=== PATIENT | male | born 1940 | race Caucasian/White ===

== ENCOUNTER → 2016-07-08 | Outpatient (REF) | payer MEDICARE ==
[~2016-07-08] MED LIST: /PANT40TA PO; ACET500C PO; ALBU83IN INH; AMLO5TAB OR; ASPI1TAB PO; ASPI81TA7 PO; ASPI81TA85 PO; BENA20TA2 OR; BENA5TAB PO; BUPR100T12 OR; BUPR1TAB17 PO; CODE30SO PO; ECOT325T5 OR; GICOCKTAIL PO; GLIM1TAB PO; IMIQ5CRE TOP; LEVO250T PO; MAGN250T OR; METO12TA PO; METO25TAB PO; OCEA0.654; PANT40TA2 PO; PRAV20TA2 OR; PRAV40TA2 PO; PRED10PA PO; TIOT18INH INH; TRAV0.006 OU; TRAVATAN Z OU; TRUL0.5I SC; VICO5TAB OR; VIT D 2000 OR; ZITHTAB PO; mycostatin PO
== END ==
LOC: M SFHCPLAZ 17:21
PROVIDERS: ATTEND Dermatology
DX: D49.2 Neoplasm of unspecified behavior of bone, soft tissue, and skin (principal); L57.0 Actinic keratosis; L21.9 Seborrheic dermatitis, unspecified

== ENCOUNTER → 2016-07-15 | Outpatient (CLI) | payer MEDICARE ==
[2016-07-15 11:46] LABS: ALBUMIN 3.6 GM/DL (3.2-5.2); ALBUMIN/GLOBULIN RATIO 1.09 (1.00-1.93); BILIRUBIN,TOTAL 0.3 MG/DL (0.2-1.0); CALCIUM LEVEL 8.8 MG/DL (8.8-10.2); CREATININE FOR GFR 1.56 MG/DL (0.70-1.30); GLOMERULAR FILTRATION RATE 46.2 (>42); POTASSIUM SERUM 4.2 MEQ/L (3.5-5.1); TOTAL PROTEIN 6.9 GM/DL (6.4-8.2)
== END ==
LOC: M LAB 10:38
PROVIDERS: ATTEND Ophthalmology
DX: H25.13 Age-related nuclear cataract, bilateral (principal); Z79.899 Other long term (current) drug therapy

== ENCOUNTER → 2016-07-20 | Outpatient (REF) | payer MEDICARE | LOC: M LAB REF 12:06 | PROVIDERS: ATTEND Internal Medicine | DX: R74.8 Abnormal levels of other serum enzymes (principal) ==

== ENCOUNTER → 2016-07-22 | Outpatient (CLI) | payer MEDICARE ==
[~2016-07-22] MED LIST changes: +FERR150C PO; +TRAV04OPD OU
--- NOTE | 2016-07-22 16:18 | REP ---
PET/CT: History: Restaging lung carcinoma. 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 Comparisons: Comparison PET/CTs are reviewed, the most recent of which is from 01/23/2016. TECHNIQUE: 75 minutes following the intravenous injection of a 8.5 mCi dose of F-18 FDG, three-dimensional PET scintigraphy is acquired from the skull base to the proximal thighs. Triplanar noncontrast CT scanning is acquired through the same anatomic range for attenuation correction, and image registration with scan parameters optimized to minimize radiation exposure to the patient. PET scintigraphy and CT datasets were fused and displayed on a workstation with multiplanar and projection display capability. PET/CT Findings: A small right pleural and a small pericardial effusion persist. There is discernible non-hypermetabolic uptake within the right pleural space, maximum SUV value below two. This is unchanged. There are post-treatment changes fairly extensively in the left chest with volume loss and pleural thickening at the upper lung zone. The liver and no hypermetabolic uptake is seen here. No adrenal hypermetabolic uptake is observed. Head and neck soft tissues remain unremarkable. There is an Zpfean-A-Warh catheter via the left side. In the abdomen and pelvis there is normal FDG distribution. There is however a new focal area of hypermetabolic uptake in the rectosigmoid colon which appears rounded and which shows higher activity than the background gastrointestinal mucosal uptake on today's scan. Maximum SUV value here is 7.2. This is a new finding and I cannot exclude a developing malignant nodule in the rectosigmoid colon. Consider sigmoidoscopy. There is no abnormality on the accompanying CT scan at this level. Impression: Stable changes in the chest. No new intrathoracic hypermetabolic uptake. There is a new focus of hypermetabolic uptake in the rectosigmoid colon question new colon lesion. Consider sigmoidoscopy. Signed by Buzz Bartlett MD 07/22/2016 04:25 P
== END ==
LOC: M RAD 09:28
PROVIDERS: ATTEND Internal Medicine Medical Oncology
DX: C34.90 Malignant neoplasm of unspecified part of unspecified bronchus or lung (principal); Z92.3 Personal history of irradiation
CPT/HCPCS: 78815; A9552

== ENCOUNTER → 2016-07-23 | Day surgery (SDC) | payer MEDICARE ==
[~2016-07-23] VITALS: Ht 172.7 cm; Wt 72.6 kg
[~2016-07-23] MED LIST changes: +ACETYLCHOLINE OPHTH SOLN 1% 2ML As Ordered ONE; +ACETYLCHOLINE OPHTH SOLN 1% 2ML XX ONE; +BALANCED SALT IRRIGATION SOL 500ML GLASS BOTTLE (FOR OR EYE COMPOUND) IR ONE; +BALANCED SALT IRRIGATION SOLUTION 500ML BAG (FOR OR EYE MACHINE) As Ordered ONE; +CEFUROXIME 1MG/0.1ML INTRACAMERAL INJ As Ordered ONE; +CEFUROXIME 1MG/0.1ML INTRACAMERAL INJ ICAM ONE; -FERR150C PO; +HEALON DUET (HEALON 10MG/ML 0.55ML & HEALON ENDOCOAT 30MG/ML 0.85ML) As Ordered ONE; +HEALON DUET (HEALON 10MG/ML 0.55ML & HEALON ENDOCOAT 30MG/ML 0.85ML) XX ONE; +LIDOCAINE 0.75%/EPINEPHRINE 0.025% IN BSS 1ML SYR INTRACAMERAL (OR ONLY) As Ordered ONE; +LIDOCAINE 4% INJ 5 ML AMP As Ordered ONE; +LIDOCAINE 4% INJ 5 ML AMP XX ONE; +MIDAZOLAM INJ 2 MG/2 ML VIAL (J2250) As Ordered ONE; +OFLOXACIN 0.3 % (OCUFLOX) OPTH SOL 5ML OS ONE; +PHENYLEPHRINE 2.5% OPHTH SOL 2ML OS ONE; +POVIDONE-IODINE 5% OPHTH PREP SOL 30ML As Ordered ONE; +PROPARACAINE 0.5% OPHTH SOL 15ML OS ONE; +TOBRADEX OPHTH OINT 3.5 GM As Ordered ONE; +TOBRADEX OPHTH OINT 3.5 GM XX ONE; -TRAV04OPD OU; +TROPICAMIDE 1% OPHTH SOLN 2 ML OS ONE; +fentaNYL 100 MCG/2 ML INJECTION (J3010) As Ordered ONE
[2016-07-23] MEDS: D5W/0.2% SODIUM CHLORIDE 1,000 ML IV SCH ×2 (10:10→10:59)
[2016-07-23 12:24] VITALS: BP 128/80
--- NOTE | 2016-07-23 21:19 | RO ---
DATE OF PROCEDURE: 07/23/2016 PREOPERATIVE DIAGNOSIS: Visually significant nuclear sclerotic cataract left eye. POSTOPERATIVE DIAGNOSIS: Visually significant nuclear sclerotic cataract left eye. PROCEDURE: Cataract extraction with use of phacoemulsification and placement of intraocular lens 22.5 diopter, left eye. SURGEON: Stef Ramesh DO SASH INSTALLER: ANESTHESIA: Local with monitored anesthesia care (MAC). COMPLICATIONS: None. POSTOPERATIVE CONDITION: Stable. INDICATION FOR SURGERY: Blurred vision left eye affecting patient's activities of daily living. DESCRIPTION OF PROCEDURE: The patient was seen in the preoperative area and properly identified. The correct operative eye was identified and marked. Attention was turned to that eye. The patient received topical antibiotics in the preoperative area. The patient then received topical dilating drops consisting of tropicamide and phenylephrine. The patient was then transferred to the operating room. The correct side was reidentified. The patient received topical anesthetics and antibiotics on the surface of the eye. The eye was prepped and draped in a sterile fashion. The upper and lower eyelids were isolated with Tegaderm tape, and the lids were held open with an adjustable speculum. Using a sideport blade, a paracentesis incision was made. Intraocular preservative-free lidocaine was then injected into the anterior chamber. Viscoelastic was then injected into the anterior chamber through the paracentesis. Using a 2.65 mm sharp-tipped keratome, the anterior chamber was entered via a temporal clear corneal incision. A continuous curvilinear capsulorrhexis was created with the aid of a 26-gauge cystotome and Utrata forceps. Hydrodissection was performed with balanced salt solution (BSS) on a blunt cannula until the nucleus was freely mobile. The crystalline lens was phacoemulsified and aspirated. Additional cohesive viscoelastic was placed into the capsular bag to deepen it. A left lens was placed into the capsular bag and confirmed by visualizing the continuous curvilinear capsulorrhexis. Additional irrigation and aspiration was used to remove cortical material and remaining viscoelastic. The clear corneal incision was hydrated with BSS on a blunt cannula. The lens was well positioned. A single 10-0 nylon suture was placed in the main incision to close it. The incisions were then tested for leaks and found to be negative. The eye was then palpated for appropriate pressure and adjusted accordingly with BSS. The eyelid speculum was then carefully removed. Tobradex ointment was placed in the eye. An eye patch and shield were then secured over the eye. The patient tolerated the procedure well and was discharged to the recovery unit in a stable condition. GUSTAVO
== END | disposition home or self-care (01) ==
LOC: M SDC 08:35
PROVIDERS: ATTEND Ophthalmology
DX: H25.12 Age-related nuclear cataract, left eye (principal); H40.9 Unspecified glaucoma; I25.10 Atherosclerotic heart disease of native coronary artery without angina pectoris; I25.2 Old myocardial infarction; E11.22 Type 2 diabetes mellitus with diabetic chronic kidney disease; I12.9 Hypertensive chronic kidney disease with stage 1 through stage 4 chronic kidney disease, or unspecified chronic kidney disease; E78.5 Hyperlipidemia, unspecified; K21.9 Gastro-esophageal reflux disease without esophagitis; N18.3 Chronic kidney disease, stage 3 (moderate); Z95.810 Presence of automatic (implantable) cardiac defibrillator; Z95.820 Peripheral vascular angioplasty status with implants and grafts; Z85.118 Personal history of other malignant neoplasm of bronchus and lung; Z87.891 Personal history of nicotine dependence; Z79.899 Other long term (current) drug therapy; Z79.82 Long term (current) use of aspirin; Z88.5 Allergy status to narcotic agent; Z88.6 Allergy status to analgesic agent; Z88.8 Allergy status to other drugs, medicaments and biological substances; Z91.040 Latex allergy status
CPT/HCPCS: 66984; J2250; J3010; V2632

== ENCOUNTER → 2016-08-06 | Day surgery (SDC) | payer MEDICARE ==
[~2016-08-06] VITALS: Ht 172.7 cm; Wt 72.0 kg
[~2016-08-06] MED LIST changes: -BALANCED SALT IRRIGATION SOL 500ML GLASS BOTTLE (FOR OR EYE COMPOUND) IR ONE; +LIDOCAINE 0.75%/EPINEPHRINE 0.025% IN BSS 1ML SYR INTRACAMERAL (OR ONLY) ICAM ONE; +OFLOXACIN 0.3 % (OCUFLOX) OPTH SOL 5ML OD ONE; -OFLOXACIN 0.3 % (OCUFLOX) OPTH SOL 5ML OS ONE; +PHENYLEPHRINE 2.5% OPHTH SOL 2ML OD ONE; -PHENYLEPHRINE 2.5% OPHTH SOL 2ML OS ONE; +PROPARACAINE 0.5% OPHTH SOL 15ML OD ONE; -PROPARACAINE 0.5% OPHTH SOL 15ML OS ONE; +TROPICAMIDE 1% OPHTH SOLN 2 ML OD ONE; -TROPICAMIDE 1% OPHTH SOLN 2 ML OS ONE
[2016-08-06 15:30] VITALS: BP 137/76
--- NOTE | 2016-08-07 10:58 | RO ---
DATE OF PROCEDURE: 08/06/2016 PREOPERATIVE DIAGNOSIS: 1. Visually significant nuclear sclerotic cataract, right eye POSTOPERATIVE DIAGNOSES: 1. Visually significant nuclear sclerotic cataract, right eye 2. Small pupil, right eye 3. Intraoperative floppy iris syndrome, right eye PROCEDURE: Complex cataract extraction with insertion of intraocular lens implant, ZCB00, 24.0 diopter with the use of iris hooks SURGEON: Stef Ramesh DO CONSTRUCTION RECRUITER: ANESTHESIA: Local with monitored anesthesia care (MAC). COMPLICATIONS: None. POSTOPERATIVE CONDITION: Stable. INDICATION FOR SURGERY: Blurred vision right eye affecting patient's activities of daily living. DESCRIPTION OF PROCEDURE: The patient was seen in the preoperative area and properly identified. The correct operative eye was identified and marked. Attention was turned to that eye. The patient received topical antibiotics in the preoperative area. The patient then received topical dilating drops consisting of tropicamide and phenylephrine. The patient was then transferred to the operating room. The correct side was reidentified. The patient received topical anesthetics and antibiotics on the surface of the eye. The eye was prepped and draped in a sterile fashion. The upper and lower eyelids were isolated with Tegaderm tape, and the lids were held open with an adjustable speculum. Using a sideport blade, a paracentesis incision was made. Intraocular preservative-free lidocaine was then injected into the anterior chamber. Viscoelastic was then injected into the anterior chamber through the paracentesis. Using a 2.65 mm sharp-tipped keratome, the anterior chamber was entered via a temporal clear corneal incision. A continuous curvilinear capsulorrhexis was created with the aid of a 26-gauge cystotome and Utrata forceps. Hydrodissection was performed with balanced salt solution (BSS) on a blunt cannula until the nucleus was freely mobile. At this time, the iris was noted to be floppy and protruding to the primary incision. The decision was made to place iris hooks to expand the pupil and keep the iris in the appropriate position. Additional paracentesis incisions were made and the hooks were placed without difficulty. The crystalline lens was phacoemulsified and aspirated. Additional cohesive viscoelastic was placed into the capsular bag to deepen it. A ZCB00, 24.0 diopter lens was placed into the capsular bag and confirmed by visualizing the continuous curvilinear capsulorrhexis. Additional irrigation and aspiration was used to remove cortical material and remaining viscoelastic. The iris hooks were removed from the eye. The clear corneal incision was hydrated with BSS on a blunt cannula. The lens was well positioned. A single 10-0 nylon suture was placed in the incision. The incisions were then tested for leaks and found to be negative. The eye was then palpated for appropriate pressure and adjusted accordingly with BSS. The eyelid speculum was then carefully removed. Tobradex ointment was paced in the eye. An eye patch and shield were then secured over the eye. The patient tolerated the procedure well and was discharged to the recovery unit in a stable condition. GUSTAVO
== END | disposition home or self-care (01) ==
LOC: M SDC 10:58
PROVIDERS: ATTEND Ophthalmology
DX: H25.11 Age-related nuclear cataract, right eye (principal); H57.03 Miosis; H21.81 Floppy iris syndrome; I25.10 Atherosclerotic heart disease of native coronary artery without angina pectoris; Z95.5 Presence of coronary angioplasty implant and graft; I25.2 Old myocardial infarction; E11.22 Type 2 diabetes mellitus with diabetic chronic kidney disease; I12.9 Hypertensive chronic kidney disease with stage 1 through stage 4 chronic kidney disease, or unspecified chronic kidney disease; K21.9 Gastro-esophageal reflux disease without esophagitis; N18.3 Chronic kidney disease, stage 3 (moderate); E78.5 Hyperlipidemia, unspecified; Z95.810 Presence of automatic (implantable) cardiac defibrillator; Z85.118 Personal history of other malignant neoplasm of bronchus and lung; Z85.828 Personal history of other malignant neoplasm of skin; Z87.891 Personal history of nicotine dependence; Z79.899 Other long term (current) drug therapy; Z79.82 Long term (current) use of aspirin; Z88.5 Allergy status to narcotic agent; Z88.8 Allergy status to other drugs, medicaments and biological substances; Z91.040 Latex allergy status; Z92.3 Personal history of irradiation; Z92.21 Personal history of antineoplastic chemotherapy
CPT/HCPCS: 66982; J2250; J3010; V2632

== ENCOUNTER → 2016-08-10 | Outpatient (REF) | payer MEDICARE ==
[~2016-08-10] MED LIST changes: -ACETYLCHOLINE OPHTH SOLN 1% 2ML As Ordered ONE; -ACETYLCHOLINE OPHTH SOLN 1% 2ML XX ONE; -BALANCED SALT IRRIGATION SOLUTION 500ML BAG (FOR OR EYE MACHINE) As Ordered ONE; -CEFUROXIME 1MG/0.1ML INTRACAMERAL INJ As Ordered ONE; -CEFUROXIME 1MG/0.1ML INTRACAMERAL INJ ICAM ONE; -HEALON DUET (HEALON 10MG/ML 0.55ML & HEALON ENDOCOAT 30MG/ML 0.85ML) As Ordered ONE; -HEALON DUET (HEALON 10MG/ML 0.55ML & HEALON ENDOCOAT 30MG/ML 0.85ML) XX ONE; -LIDOCAINE 0.75%/EPINEPHRINE 0.025% IN BSS 1ML SYR INTRACAMERAL (OR ONLY) As Ordered ONE; -LIDOCAINE 0.75%/EPINEPHRINE 0.025% IN BSS 1ML SYR INTRACAMERAL (OR ONLY) ICAM ONE; -LIDOCAINE 4% INJ 5 ML AMP As Ordered ONE; -LIDOCAINE 4% INJ 5 ML AMP XX ONE; -MIDAZOLAM INJ 2 MG/2 ML VIAL (J2250) As Ordered ONE; -OFLOXACIN 0.3 % (OCUFLOX) OPTH SOL 5ML OD ONE; -PHENYLEPHRINE 2.5% OPHTH SOL 2ML OD ONE; -POVIDONE-IODINE 5% OPHTH PREP SOL 30ML As Ordered ONE; -PROPARACAINE 0.5% OPHTH SOL 15ML OD ONE; -TOBRADEX OPHTH OINT 3.5 GM As Ordered ONE; -TOBRADEX OPHTH OINT 3.5 GM XX ONE; -TROPICAMIDE 1% OPHTH SOLN 2 ML OD ONE; -fentaNYL 100 MCG/2 ML INJECTION (J3010) As Ordered ONE
== END ==
LOC: M LAB REF 12:06
PROVIDERS: ATTEND Internal Medicine
DX: R74.8 Abnormal levels of other serum enzymes (principal)

== ENCOUNTER → 2016-09-01 | Outpatient (REF) | payer MEDICARE ==
[~2016-09-01] MED LIST changes: +TRAV04OPD OU
[2016-09-01 15:02] LABS: PERCENT SATURATION 14.3 % (19.7-37.4)
== END ==
LOC: M LAB REF 12:45
PROVIDERS: ATTEND Internal Medicine Nephrology
DX: D50.9 Iron deficiency anemia, unspecified (principal)

== ENCOUNTER → 2016-09-08 | Outpatient (CLI) | payer MEDICARE ==
[~2016-09-08] VITALS: Ht 168.9 cm; Wt 72.6 kg
[~2016-09-08] MED LIST changes: +FERR150C PO; +NS 1,000 ML IV SCH; +PROPOFOL 200 MG/20 ML VIAL As Ordered ONE
--- NOTE | 2016-09-08 11:41 | ROOR ---
Patient Name: Pb Mckinnon Procedure Date: 09/08/2016 11:01 AM Date of : 1940 Age: 76 Room: [facility] Gender: Male Note Status: Finalized Procedure: Colonoscopy to Cecum + Hot and Cold Snare Polypectomy + Hemoclips. Indications: Abnormal PET scan of the GI tract Providers: Kendrick Ramesh MD Referring MD: Meredith GEIGER MD Requesting Provider: Medicines: Monitored Anesthesia Care Complications: No immediate complications. Procedure: Pre-Anesthesia Assessment: - The heart rate, respiratory rate, oxygen saturations, blood pressure, adequacy of pulmonary ventilation, and response to care were monitored throughout the procedure. The Colonoscope was introduced through the anus and advanced to the cecum, identified by appendiceal orifice and ileocecal valve. The colonoscopy was performed without difficulty. The patient tolerated the procedure well. The quality of the bowel preparation was good. Findings: The perianal and digital rectal examinations were normal. Non-bleeding internal hemorrhoids were found during retroflexion. The hemorrhoids were small and Grade I (internal hemorrhoids that do not prolapse). Multiple small and large-mouthed diverticula were found in the recto-sigmoid colon, sigmoid colon and descending colon. A medium polyp was found at 20 cm proximal to the anus. The polyp was pedunculated. The polyp was removed with a hot snare. Resection and retrieval were complete. To prevent bleeding after the polypectomy, four hemostatic clips were successfully placed (MR conditional). There was no bleeding at the end of the procedure. Two sessile polyps were found in the mid transverse colon. The polyps were medium in size. These polyps were removed with a hot snare. Resection and retrieval were complete. To prevent bleeding after the polypectomy, two hemostatic clips were successfully placed (MR conditional). There was no bleeding at the end of the procedure. The exam was otherwise without abnormality on direct and retroflexion views. Impression: - Non-bleeding internal hemorrhoids. - Diverticulosis in the recto-sigmoid colon, in the sigmoid colon and in the descending colon. - One medium polyp at 20 cm proximal to the anus, removed with a hot snare. Resected and retrieved. Clips (MR conditional) were placed. - Two medium polyps in the mid transverse colon, removed with a hot snare. Resected and retrieved. Clips (MR conditional) were placed. - The examination was otherwise normal on direct and retroflexion views. - The exam was otherwise normal to the cecum. Recommendation: - Discharge patient to home. - Continue present medications. - Await pathology results. - Telephone GI clinic for pathology results in 1 week. - Repeat colonoscopy for surveillance based on pathology results. - Return to referring physician. - The findings and recommendations were discussed with the patient's family. Kendrick Ramesh MD Kendrick Ramesh MD 09/08/2016 11:41:21 AM This report has been signed electronically. Number of Addenda: 0 Note Initiated On: 09/08/2016 11:01 AM Estimated Blood Loss: Estimated blood loss: none.
[2016-09-08 12:11] VITALS: BP 124/71
== END | disposition home or self-care (01) ==
LOC: M OPP 08:47
PROVIDERS: ATTEND Internal Medicine Gastroenterology
DX: R93.3 Abnormal findings on diagnostic imaging of other parts of digestive tract (principal); D12.5 Benign neoplasm of sigmoid colon; D12.3 Benign neoplasm of transverse colon; K64.0 First degree hemorrhoids; K57.30 Diverticulosis of large intestine without perforation or abscess without bleeding; I25.10 Atherosclerotic heart disease of native coronary artery without angina pectoris; I25.2 Old myocardial infarction; I12.9 Hypertensive chronic kidney disease with stage 1 through stage 4 chronic kidney disease, or unspecified chronic kidney disease; E78.00 Pure hypercholesterolemia, unspecified; Z95.5 Presence of coronary angioplasty implant and graft; Z95.810 Presence of automatic (implantable) cardiac defibrillator; K21.9 Gastro-esophageal reflux disease without esophagitis; E11.9 Type 2 diabetes mellitus without complications; R12 Heartburn; M19.90 Unspecified osteoarthritis, unspecified site; Z85.828 Personal history of other malignant neoplasm of skin; Z85.118 Personal history of other malignant neoplasm of bronchus and lung; F32.9 Major depressive disorder, single episode, unspecified; M81.0 Age-related osteoporosis without current pathological fracture; R06.02 Shortness of breath; Z92.3 Personal history of irradiation; Z92.21 Personal history of antineoplastic chemotherapy; N18.9 Chronic kidney disease, unspecified; Z87.891 Personal history of nicotine dependence; Z88.5 Allergy status to narcotic agent; Z88.8 Allergy status to other drugs, medicaments and biological substances; Z91.048 Other nonmedicinal substance allergy status; Z88.6 Allergy status to analgesic agent; Z79.899 Other long term (current) drug therapy; Z79.82 Long term (current) use of aspirin; Z86.69 Personal history of other diseases of the nervous system and sense organs; Z80.42 Family history of malignant neoplasm of prostate

== ENCOUNTER → 2016-11-11 | Outpatient (REF) | payer MEDICARE ==
[~2016-11-11] MED LIST changes: -NS 1,000 ML IV SCH; -PROPOFOL 200 MG/20 ML VIAL As Ordered ONE
== END ==
LOC: M SFHCPLAZ 11:33
PROVIDERS: ATTEND Dermatology
DX: L57.0 Actinic keratosis (principal)

== ENCOUNTER → 2017-01-11 | Outpatient (REF) | payer MEDICARE ==
[~2017-01-11] MED LIST changes: -BUPR1TAB17 PO; +BUPR1TAB53 PO; +LOSA25TA8 PO; +LOSARTIN; +METO25TA4 PO
[2017-01-11 19:37] LABS: PERCENT SATURATION 27.7 % (19.7-37.4)
== END ==
LOC: M LAB REF 17:09
PROVIDERS: ATTEND Internal Medicine Nephrology
DX: D50.9 Iron deficiency anemia, unspecified (principal)

== ENCOUNTER 2017-03-29 08:49 | Outpatient (CLI) | payer MEDICARE ==
[~2017-03-29] VITALS: Ht 170.2 cm; Wt 71.2 kg
[2017-03-29] MEDS ORDERED: NS 1,000 ML IV ONE (09:00)
[2017-03-29] MEDS ORDERED: PROPOFOL 200 MG/20 ML VIAL As Ordered ONE (10:07)
[2017-03-29] MEDS ORDERED: LIDOCAINE 2% INJ 100 MG/5 ML SDV (FOR ANES.) As Ordered ONE (10:12)
--- NOTE | 2017-03-29 10:38 | ROOR ---
Patient Name: Pb Mckinnon Procedure Date: 03/29/2017 10:18 AM Date of : 1940 Age: 77 Room: [facility] Gender: Male Note Status: Finalized Procedure: Total Colonoscopy to Cecum Indications: Follow-up for history of colon polyps of uncertain behavior Providers: Kendrick Ramesh MD Referring MD: Meredith GEIGER MD Requesting Provider: Medicines: Monitored Anesthesia Care Complications: No immediate complications. Procedure: Pre-Anesthesia Assessment: - The heart rate, respiratory rate, oxygen saturations, blood pressure, adequacy of pulmonary ventilation, and response to care were monitored throughout the procedure. The Colonoscope was introduced through the anus and advanced to the cecum, identified by appendiceal orifice and ileocecal valve. The colonoscopy was performed without difficulty. The patient tolerated the procedure well. The quality of the bowel preparation was good. Findings: The perianal and digital rectal examinations were normal. Non-bleeding internal hemorrhoids were found during retroflexion. The hemorrhoids were small and Grade I (internal hemorrhoids that do not prolapse). Multiple small and large-mouthed diverticula were found in the recto-sigmoid colon, sigmoid colon and descending colon. The exam was otherwise without abnormality on direct and retroflexion views. Impression: - Non-bleeding internal hemorrhoids. - Diverticulosis in the recto-sigmoid colon, in the sigmoid colon and in the descending colon. - The examination was otherwise normal on direct and retroflexion views. - No specimens collected. - The exam was otherwise normal to the cecum. Recommendation: - Patient has a contact number available for emergencies. The signs and symptoms of potential delayed complications were discussed with the patient. Return to normal activities tomorrow. Written discharge instructions were provided to the patient. - High fiber diet. - Discharge patient to home. - Continue present medications. - Repeat colonoscopy for symptoms only. - Return to referring physician. - The findings and recommendations were discussed with the patient's family. Kendrick Ramesh MD Kendrick Ramesh MD 03/29/2017 10:37:35 AM This report has been signed electronically. Number of Addenda: 0 Note Initiated On: 03/29/2017 10:18 AM Estimated Blood Loss: Estimated blood loss: none.
[2017-03-29 11:00] VITALS: BP 124/74
== END 2017-03-29 11:08 | disposition home or self-care (01) ==
LOC: M OPP 08:49
PROVIDERS: ATTEND Internal Medicine Gastroenterology
DX: Z09 Encounter for follow-up examination after completed treatment for conditions other than malignant neoplasm (principal); D37.4 Neoplasm of uncertain behavior of colon; Z86.010 Personal history of colon polyps; K64.0 First degree hemorrhoids; K57.30 Diverticulosis of large intestine without perforation or abscess without bleeding; I25.10 Atherosclerotic heart disease of native coronary artery without angina pectoris; I12.9 Hypertensive chronic kidney disease with stage 1 through stage 4 chronic kidney disease, or unspecified chronic kidney disease; E78.5 Hyperlipidemia, unspecified; Z95.810 Presence of automatic (implantable) cardiac defibrillator; Z95.5 Presence of coronary angioplasty implant and graft; I25.2 Old myocardial infarction; K21.9 Gastro-esophageal reflux disease without esophagitis; R12 Heartburn; E11.9 Type 2 diabetes mellitus without complications; M19.90 Unspecified osteoarthritis, unspecified site; Z85.828 Personal history of other malignant neoplasm of skin; F32.9 Major depressive disorder, single episode, unspecified; Z85.118 Personal history of other malignant neoplasm of bronchus and lung; Z92.3 Personal history of irradiation; Z92.21 Personal history of antineoplastic chemotherapy; N18.9 Chronic kidney disease, unspecified; Z88.8 Allergy status to other drugs, medicaments and biological substances; Z91.048 Other nonmedicinal substance allergy status; Z88.5 Allergy status to narcotic agent; Z79.82 Long term (current) use of aspirin; Z79.899 Other long term (current) drug therapy; Z80.42 Family history of malignant neoplasm of prostate